=== PATIENT | female | born 1945 | race Caucasian/White ===

== ENCOUNTER 2018-09-02 18:36 | Emergency (ER) | payer BC, MEDICARE, OTHER ==
[~2018-09-02] VITALS: Ht 160 cm; Wt 94.4 kg
[2018-09-02 19:06] VITALS: Ht 160 cm; Wt 94.4 kg
[2018-09-02] MEDS ORDERED: ACETAMINOPHEN 500 MG TAB PO STA (20:15)
[2018-09-02] MEDS ORDERED: ACET500C5 PO (20:41)
--- NOTE | 2018-09-02 20:56 | ERD ---
ER Documentation Chief Complaint Chief Complaint glf while walking the dog at 1400, c/o bruising on chin, nasal abrasion HPI 73-year-old female presents the ED after. Patient states that she was walking her grandsons dog, the dog pulled on her and caused her to fall forward. She hit her chin on the ground, as well as her hands, ribs and bilateral knees. Patient states that she is able to bear weight after the fall. Denies LOC, nausea, or vomiting. Patient is taking Plavix daily. Denies neck pain. Denies shortness of breath. ROS All systems reviewed and are negative except as per history of present illness. 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) Anesthesia Reaction: No Hx Neurological Disorder: No Hx Respiratory Disorders: Yes (Uses inhaler PRN) Hx Cardiac Disorders: Yes (Blockage see Surgery above) Hx Psychiatric Problems: Yes (Psych event SI in 1966, no problems since.) Hx Miscellaneous Medical Probl: No Hx Alcohol Use: Yes (Socially) Hx Substance Use: No (CBD oil for arthritis) Hx Tobacco Use: Yes (Quit cigarettes 2007) Smoking Status: Former smoker Physical Exam Vitals Vital Signs Date Temp Pulse Resp B/P (MAP) Pulse Ox O2 O2 Flow FiO2 Time Delivery Rate 09/02/18 98.8 104 20 143/79 96 19:06 (100) Physical Exam General: Patient is well-developed. Awake, alert, and conversant, in no apparent distress Skin: Warm and dry Head: Normocephalic, atraumatic without palpable deformities Eyes: Pupils equal, round, and reactive to light. Extraocular movements intact. No periorbital ecchymosis or step-off Nose/face: Facial bones are nontender to palpation and stable with attempts at manipulation. Bruising noted at the chin. There is a is superficial 1 cm laceration and mid upper lip above the remaining border, and a 0.7 cm superficial laceration at the mid lower lip below the remaining border. 2 less than 1 cm laceration is noted in the buccal mucosa. No active bleeding. Neck: No midline point tenderness, step-off, or deformity to firm palpation of posterior cervical spine. Trachea midline. Carotids equal. No masses. No JVD. Full range of motion of the neck without limitation or pain Chest: No surface trauma. Bilateral anterior ribs tender without crepitus or deformity. No palpable subcutaneous air. Lungs have good tidal volume, lungs clear to auscultate bilaterally Heart: Regular rate and rhythm. No murmur, rub, or gallop Extremities: Bilateral anterior knee contusion noted, with superficial abrasion over the anterior right knee. Left shoulder nontender. Full range of motion without limitation or pain. Good strength in all extremities. Sensation to light touch intact. All peripheral pulses are intact and equal Neuro: Alert and oriented 4, GCS 15 Results 24 hrs Current Medications Medications Dose Sig/Maria De Jesus Start Time Status Last (Trade) Ordered Route PRN Stop Time Admin Dose Reason Admin 500 mg ONCE STAT 09/02/18 DC 09/02/18 Acetaminophen PO 20:15 20:26 (Tylenol 09/02/18 Tab) 20:19 PROCEDURE: Bilateral ribs CLINICAL INDICATION: Trauma TECHNIQUE: Bilateral rib images were obtained. The images were reviewed on a PACS workstation. 12 images COMPARISON: None. FINDINGS: Heart size is normal. The lungs are clear. There is no evidence of pneumothorax. Rib detail images show no visible rib fracture. IMPRESSION: 1. No visible rib fractures. RPTAT:AAJJ Physician Talya Date Time Electronically viewed and signed by Physician Talya on 09/02/2018 21:17 GW/ CC: EYAL ONEAL NP PROCEDURE: CT Brain without contrast. CLINICAL INDICATION: Trauma TECHNIQUE: A CT of the brain was performed on a multidetector CT scanner utilizing axial imaging from the skull base through the vertex without intravenous contrast. Multiplanar reformatted images were made. The CTDIvol is 36 mGy and the DLP is it is 634 mGycm. DICOM images are available. One or more of the following dose reduction techniques were utilized: 1.) Automated exposure control 2.) Adjustment of the mA +/- kV according to patient's size 3.) Use of iterative reconstruction technique. COMPARISON: None. FINDINGS: There is no discrete extra-axial fluid collection or mass. Noted is moderate diffuse cerebral volume loss with sulcal and ventricular dilatation. The ventricles are in the midline and of normal configuration. There is moderate periventricular and subcortical white matter disease in both cerebral hemispheres. There is no associated mass effect. There is preservation of normal calderón-white differentiation. No intracranial hemorrhage is identified. There is normal aeration of the visualized paranasal sinuses. IMPRESSION: 1. No intracranial hemorrhage, mass or evidence of acute transcortical infarct. No skull fracture. 2. Moderate diffuse atrophy. 3. Periventricular white matter disease compatible with chronic small vessel ischemia. .Herson Mendez MD MD Date Time Electronically viewed and signed by .Herson Mendez MD, MD on 09/02/2018 21:39 .A/ CC: EYAL ONEAL NP PROCEDURE: CT Cervical Spine. CLINICAL INDICATION: Trauma with neck pain. TECHNIQUE: A CT of the cervical spine was performed on a multi-slice CT scanner utilizing thin section axial images from the skull base through the thoracic inlet. Sagittal and coronal reformatted images were made. The CTDIvol is 22 mGy and the DLP is 494 mGycm. DICOM images are available. 3-D reconstructions were notperformed. One or more of the following dose reduction techniques were utilized: 1.) Automated exposure control 2.) Adjustment of the mA +/- kV according to patient's size 3.) Use of iterative reconstruction technique. COMPARISON: None. FINDINGS: Bony alignment is normal. Vertebral body heights are maintained. The C4 and C5 vertebra are developmentally fused and the C5-6 disc space is vestigial. There is uncovertebral joint osteophytosis at C5-6 producing some stenosis of the left C6 neural foramen. The foramina are otherwise widely patent. The atlanto-axial and craniocervical relationships are normal. No fractures are identified. No paravertebral soft tissue abnormalities are identified. IMPRESSION: 1. No visible acute traumatic abnormality of the cervical spine. 2. Developmental and degenerative changes at the C4-C6 levels as described above with left C6 neural foraminal stenosis. RPTAT:AAJJ Physician Talya Date Time Electronically viewed and signed by Physician Talya on 09/02/2018 21:42 GW/ CC: EYAL ONEAL. INVESTIGATOR VICE Procedures/MDM 73-year-old female presented to ED with multiple abrasions and contusions after a fall. Patient is on Plavix, she hit her chin in the fall. I discussed the patient with Dr. Camp, who recommends that we proceed with a head and cervical spine CT to rule out intracranial hemorrhage and cervical spine fractures. Head CT is negative for intracranial hemorrhage. C-spine CT is negative for acute cervical spine fracture. X-ray of bilateral ribs also obtained to rule out rib fracture, rib x-rays are negative. The superficial lacerations above and below her lips are continuous oozing. I thoroughly cleansed patient's wound, and apply minimal pressure to stop the bleeding. After which, Dermabond is applied to close the wound. The intraoral laceration does not require any closure. I advised patient that it will heal relatively quickly on its own. Patient's other abrasions are also cleaned and dressed. Patient appears well, stable for discharge and outpatient management. Medical decision making shared with patient and family. Education provided to patient and family. Patient and family expressed understanding of the plan. Medications on discharge: Tylenol. Follow-up: Primary care provider in 2-3 days or return to ED if worse. Disclaimer: Inadvertent spelling and grammatical errors are likely due to EHR/dictation software use and do not reflect on the overall quality of patient care. Also, please note that the electronic time recorded on this note does not necessarily reflect the actual time of the patient encounter. Departure Diagnosis: Primary Impression: Fall Encounter type: initial encounter Qualified Codes: W19.XXXA - Unspecified fall, initial encounter Additional Impressions: Laceration of oral cavity Encounter type: initial encounter Qualified Codes: S01.512A - Laceration without foreign body of oral cavity, initial encounter Facial contusion Encounter type: initial encounter Qualified Codes: S00.83XA - Contusion of other part of head, initial encounter Abrasion Rib pain Condition: Stable Patient Instructions: Abrasion, Facial Contusion, No Wakeup, Rib Contusion, Fall Prevention Referrals: [facility] [place] YOU HAVE RECEIVED A MEDICAL SCREENING EXAM AND THE RESULTS INDICATE THAT YOU DO NOT HAVE A CONDITION THAT REQUIRES URGENT TREATMENT IN THE EMERGENCY DEPARTMENT. FURTHER EVALUATION AND TREATMENT OF YOUR CONDITION CAN WAIT UNTIL YOU ARE SEEN IN YOUR DOCTORS OFFICE WITHIN THE NEXT 1-2 DAYS. IT IS YOUR RESPONSIBILITY TO MAKE AN APPOINTMENT FOR FOLOW-UP CARE. IF YOU HAVE A PRIMARY DOCTOR --you should call your primary doctor and schedule an appointment IF YOU DO NOT HAVE A PRIMARY DOCTOR YOU CAN CALL OUR PHYSICIAN REFERRAL HOTLINE AT IF YOU CAN NOT AFFORD TO SEE A PHYSICIAN YOU CAN CHOSE FROM THE FOLLOWING [facility] [address] [facility]. [facility] [address] [facility] [place]. [facility] [address] [facility] [address] [facility] [facility] [address] [facility] [facility]. [address] Additional Instructions: Call your primary care doctor TOMORROW for an appointment during the next 1 WEEK.Tell the board of education secretary that you were referred from this facility.See the doctor sooner or return here if your condition worsens before your appointment time. EYAL ONEAL NP Sep 02, 2018 20:56
[2018-09-02 23:12] VITALS: BP 150/75; PULSE 94; RESP 20
== END 2018-09-02 23:13 | disposition home or self-care (01) ==
LOC: FTE 18:36
DX: S01.512A Laceration without foreign body of oral cavity, initial encounter (principal); S29.9XXA Unspecified injury of thorax, initial encounter; R40.2412 Glasgow coma scale score 13-15, at arrival to emergency department; W01.198A Fall on same level from slipping, tripping and stumbling with subsequent striking against other object, initial encounter; Y92.9 Unspecified place or not applicable; Z87.891 Personal history of nicotine dependence
CPT/HCPCS: 70450; 71110; 72125